=== PATIENT | male | born 1965 | race Caucasian/White ===

== ENCOUNTER 2016-09-05 10:49 | Emergency (ER) | payer OTHER ==
[~2016-09-05] VITALS: Ht 188 cm; Wt 68.0 kg
[~2016-09-05 10:49] MED LIST: LORT7.5T3 PO
[2016-09-05 11:00] VITALS: BP 116/86; PULSE 78; RESP 24; TEMP 97.8; O2SAT 98
[2016-09-05 11:15] VITALS: O2SAT 98
[2016-09-05] MEDS ORDERED: methylPREDNISolone SOD SUCC 125 MG/2 ML VIAL IM ONE (11:15)
--- NOTE | 2016-09-05 11:17 | PD ---
HPI Chief Complaint: Respiratory Symptoms Time Seen by Provider: 11:14 Travel History International Travel<30 days: No Contact w/Intl Traveler<30days: No Traveled to known affect area: No History of Present Illness HPI 50-year-old male with history of smoking, presents to the ER today for several days history of cough, shortness of breath, wheezing. He denies any fevers or any other issues. He states it worsens when he goes to work. He was told to go home today. Modifying Factors: None Associated Signs & Symptoms: Coughing, wheezing, shortness of breath Risk Factors: Smoking history PFSH Past Medical History Medical History: Denies Significant Hx Blood Disorders: No Cardiovascular Problems: No Endocrine: No Genitourinary: No Immune Disorder: No Musculoskeletal: No Neurologic: No Psychiatric: No Respiratory: No Integumentary: Yes (SUTURES TO RIGHT LEG ) Tetanus Vaccination: > 5 Years Influenza Vaccination: No Past Surgical History Surgical History: No Previous Surgery Social History Alcohol Use: Yes (WEEKENDS) Tobacco Use: Yes (04/01 PK) Substance Use: Yes (THC) Allergies-Medications (Allergen,Severity, Reaction): Coded Allergies: No Known Allergies (Verified , 09/05/16) Reported Meds & Prescriptions Reported Meds & Active Scripts Active Proventil Hfa 6.7 GM Inh (Albuterol Sulfate) 90 Mcg/Act Aer 2 Puff INH Q4-6H PRN Prednisone 50 Mg Tab 50 Mg PO DAILY Zithromax Z-Claudio (Azithromycin) 250 Mg Dspk 250 Mg PO DIRECTED 500 MG (2 tabs) day 1, then 1 tab days 2-5. Review of Systems Except as stated in HPI: all other systems reviewed are Neg Physical Exam Narrative GENERAL: Middle age well-developed male patient currently in mild respiratory distress. SKIN: Focused skin assessment warm/dry. HEAD: Atraumatic. Normocephalic. EYES: Pupils equal and round. No scleral icterus. No injection or drainage. ENT: No nasal bleeding or discharge. Mucous membranes pink and moist. NECK: Trachea midline. No JVD. CARDIOVASCULAR: Regular rate and rhythm. No murmur appreciated. RESPIRATORY: Mild accessory muscle use. With wheezing throughout bilaterally. Breath sounds equal bilaterally. GASTROINTESTINAL: Abdomen soft, non-tender, nondistended. Hepatic and splenic margins not palpable. MUSCULOSKELETAL: No obvious deformities. No clubbing. No cyanosis. No edema. NEUROLOGICAL: Awake and alert. No obvious cranial nerve deficits. Motor grossly within normal limits. Normal speech. PSYCHIATRIC: Appropriate mood and affect; insight and judgment normal. Data Data Last Documented VS Vital Signs Date Time Temp Pulse Resp B/P Pulse Ox O2 Delivery O2 Flow Rate FiO2 09/05/16 11:30 98 Nasal Cannula 21 09/05/16 11:00 97.8 78 24 116/86 Orders Ecg Monitoring (09/05/16 11:14) Oximetry (09/05/16 11:14) Oxygen Administration (09/05/16 11:14) Chest, Single Ap (09/05/16 11:14) Methylprednisolone So Succ Inj (Solumedr (09/05/16 11:15) Albuterol-Ipratropium Neb (Duoneb Neb) (09/05/16 11:15) MDM Medical Decision Making Medical Screen Exam Complete: Yes Emergency Medical Condition: Yes Medical Record Reviewed: Yes Interpretation(s) Last 24 hours Impressions Chest X-Ray 09/05/16 1114 Signed Impressions: Service Date/Time: August 11:20 - CONCLUSION: 1. No acute cardiopulmonary disease. Jos Bruno MD Differential Diagnosis Cough, wheezing, shortness of breathpneumonia versus bronchitis versus COPD exacerbation Narrative Course Chest x-ray did not show any signs of acute pulmonary processes. Patient was given Solu-Medrol and nebulizers in the ER. On reevaluation at 12:45 PM, he is feeling improved. His wheezing has gone. At this point, my plan would be to release the patient with follow-up to primary care physician. I have also talked to the patient regarding smoking cessation and the fact that this could increase chances of worsening bronchitis and COPD. At this point, patient states understanding and states he will stop smoking on his own. He should return for any worsening in symptoms as needed. The plan has been discussed with the patient and he states understanding. Diagnosis Primary Impression: Bronchitis Additional Impression: Encounter for smoking cessation counseling Med/Other Pt SpecificInfo: Prescription(s) given Scripts Albuterol 6.7 GM Inh (Proventil Hfa 6.7 GM Inh)90 Mcg/Act Aer2 Puff INH Q4-6H PRN (SHORTNESS OF BREATH) #1 INHALER Ref 0 Prov:Soontharothai,Rewadee MD 09/05/16 Prednisone 50 Mg Tab50 Mg PO DAILY #5 TAB Ref 0 Prov:Patrick Morin MD 09/05/16 Azithromycin (Zithromax Z-Claudio)250 Mg [id number] Mg PO DIRECTED #1 DSPK Ref 0 500 MG (2 tabs) day 1, then 1 tab days 2-5. Prov:Patrick Morin MD 09/05/16 Disposition: 01 DISCHARGE HOME Condition: Stable Patrick Morin MD Sep 05, 2016 11:17
[2016-09-05] MEDS: RESP: ALBUTEROL 2.5 MG/IPRATROPIUM 0.5 MG NEB (SCH) INH ×2 (11:28→11:39)
[2016-09-05 11:30] VITALS: O2SAT 98
--- NOTE | 2016-09-05 12:32 | RADHPO ---
EXAM DATE/TIME: 09/05/2016 11:20 [facility] COMPARISON: No previous studies available for comparison. INDICATIONS : Cough, congestion, short of breath, tightness in chest. MEDICAL HISTORY : Smoker. Left side chest tube in SURGICAL HISTORY : Left side chest tube in ENCOUNTER: Initial ACUITY: 4 - 6 days PAIN SCORE: 4/10 LOCATION: chest FINDINGS: A single view of the chest demonstrates the lungs to be symmetrically aerated without evidence of mas s, infiltrate or effusion. The cardiomediastinal contours are unremarkable. Osseous structures are intact. CONCLUSION: 1. No acute cardiopulmonary disease. Jos Bruno MD on September 05, 2016 at 12:30 Board Certified Radiologist. This report was verified electronically.
[2016-09-05] MEDS ORDERED: ZITHTAB PO (12:49)
[2016-09-05] MEDS ORDERED: ALBU6.7H INH (12:49)
[2016-09-05] MEDS ORDERED: PRED50 PO (12:49)
[2016-09-05 13:10] VITALS: BP 123/79; PULSE 76; O2SAT 97
--- NOTE | 2016-09-06 18:02 | EKG ---
Date Performed: 09/05/2016 Time Performed: 10:53:50 PTAGE: 50 years EKG: Sinus rhythm Poor R wave progression - probable normal variant Borderline ECG NO PREVIOUS TRACING DOCTOR: Burke Merino Interpretating Date/Time 09/06/2016 18:00:13
== END 2016-09-05 13:10 | disposition home or self-care (01) ==
LOC: PHED 10:49
DX: J40 Bronchitis, not specified as acute or chronic (principal); F17.210 Nicotine dependence, cigarettes, uncomplicated; R94.31 Abnormal electrocardiogram [ECG] [EKG]
CPT/HCPCS: 71010; 93005; 94640; 94664; 96372; 99284; J2930

== ENCOUNTER 2017-03-18 16:50 | Emergency (ER) | payer OTHER ==
[~2017-03-18] VITALS: Ht 185.4 cm; Wt 68.0 kg
[~2017-03-18 16:50] MED LIST changes: +ALBU6.7H INH; -LORT7.5T3 PO; +PRED50 PO; +ZITHTAB PO
[2017-03-18 16:57] VITALS: BP 117/74; PULSE 81; RESP 28; TEMP 98.4; O2SAT 98
[2017-03-18] MEDS ORDERED: LIDOCAINE 1%/EPINEPHrine 1:100,000 SOLN 20 ML VIAL INFIL ONE (17:15)
[2017-03-18] MEDS ORDERED: TETANUS/DIPHTHERIA TOXOID ADULT 0.5 ML VIAL IM ONE ×2 (17:15→17:45)
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
[2017-03-18] MEDS ORDERED: LIDOCAINE 2%/EPINEPHrine 1:100,000 20ML MDV NERV BLOCK ONE (17:30)
[2017-03-18] MEDS ORDERED: ceFAZolin INJ 1,000 MG VIAL IM ONE (17:30)
[2017-03-18 17:59] VITALS: BP 112/77; PULSE 82; RESP 18; O2SAT 97
[2017-03-18] MEDS ORDERED: BACT800T5 PO (17:59)
[2017-03-18] MEDS ORDERED: CEPH-460 PO (17:59)
== END 2017-03-18 18:12 | disposition home or self-care (01) ==
LOC: PHEFT 16:50
DX: S81.811A Laceration without foreign body, right lower leg, initial encounter (principal); Z23 Encounter for immunization
CPT/HCPCS: 12002; 90471; 90714; 96372; 99284; E0113; J0690; L1830

== ENCOUNTER 2017-09-22 13:40 | Emergency (ER) | payer SELFPAY ==
[~2017-09-22] VITALS: Ht 188 cm; Wt 73.0 kg
[~2017-09-22 13:40] MED LIST changes: -ALBU6.7H INH; +BACT800T5 PO; +CEPH-460 PO; -PRED50 PO; -ZITHTAB PO
[2017-09-22 13:47] VITALS: BP 127/65; PULSE 82; RESP 16; TEMP 98.3; O2SAT 98
[2017-09-22] MEDS ORDERED: LIDOCAINE 1%/EPINEPHrine 1:100,000 SOLN 20 ML VIAL INFIL ONE (14:45)
[2017-09-22] MEDS ORDERED: BACT800T5 PO (14:57)
[2017-09-22] MEDS ORDERED: DOXY100C PO (14:57)
[2017-09-22] MEDS ORDERED: SULFAMETHOXAZOLE-TRIMETHOPRIM DS 800-160 MG TAB PO ONE (15:00)
[2017-09-22] MEDS ORDERED: DOXYCYCLINE HYCLATE 100 MG TAB PO ONE (15:00)
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
== END 2017-09-22 15:15 | disposition home or self-care (01) ==
LOC: PHEFT 13:40
DX: L02.416 Cutaneous abscess of left lower limb (principal); B95.61 Methicillin susceptible Staphylococcus aureus infection as the cause of diseases classified elsewhere; F17.210 Nicotine dependence, cigarettes, uncomplicated
CPT/HCPCS: 10060; 86403; 87070; 87077; 87186; 87205